=== PATIENT | female | born 1985 | race Caucasian/White ===

== ENCOUNTER 2021-09-26 18:40 | Emergency (ER) | payer SELFPAY ==
[~2021-09-26] VITALS: Ht 162 cm; Wt 127.0 kg
--- NOTE | 2021-09-26 18:55 | ED General ---
General Chief Complaint: General Problems/Pain Stated Complaint: WEAKNESS Nursing Triage Note: ARRIVED VIA EMS FROM WORK AT [employer] WHERE SHE BECAME DIZZY ET LIGHT HEADED AND POSSIBLY PASSED OUT. PT DOES NOT SPEAK CHADIAN. BROTHER IN LAW BROUGHT INTO TRANSLATE. HE STATES HER VISION IS BLURRY. Source of Information: Patient Exam Limitations: No Limitations History of Present Illness Date Seen by Provider: Sep 26, 2021 Time Seen by Provider: 18:53 Initial Comments To ER from work at [employer] where she had an episode of dizziness lightheadedness and blurred vision. This began about 3 PM today. EMS arrived on scene and found her blood sugar to be 66. She denies any known health problems or daily medications. She denies headache or pain anywhere now or at any time. At this time she feels back to normal though she does report that she feels nervous and her vision is still a little blurry. Her [id number]-[id number]-cbs is used for market relationship manager as a Welsh market relationship manager was not available with language line. Timing/Duration: 4-6 Hours Severity: Moderate Associated Systoms: No Headaches, No Loss of Appetite, No Malaise, No Nause a/Vomiting Allergies and Home Medications Allergies Coded Allergies: No Known Drug Allergies (Unverified , 09/26/21) Patient Home Medication List Home Medication List Reviewed: Yes Amoxicillin/Potassium Clav (Augmentin 875-125 Tablet) 1 Each Tablet, 1 EACH PO BID Prescribed by: RHINA ONEAL on 09/26/211958 Review of Systems Review of Systems Constitutional: see HPI EENTM: see HPI, blurred vision Respiratory: no symptoms reported Cardiovascular: no symptoms reported Genitourinary: no symptoms reported Musculoskeletal: no symptoms reported Skin: no symptoms reported Psychiatric/Neurological: No Symptoms Reported Past Dhfkcol-Apjaay-Vdktxd Hx Patient Social History Tobacco Use?: No Substance use?: No Immunizations Up To Date Second COVID19 Vaccination Pola: YES COVID19 Vaccine Bundle Tier: UNKNOWN Physical Exam Vital Signs Vital Signs - First Documented 09/26/21 18:42 Temp 36.3 Pulse 73 Resp 16 B/P (MAP) 127/92 (104) Pulse Ox 100 O2 Delivery Room Air Capillary Refill : Less Than 3 Seconds Height, Weight, BMI Height: '" Weight: lbs. oz. kg; 48.00 BMI Method: General Appearance: No Apparent Distress, WD/WN, Other (Hemodynamically stable without hypoxia hypotension or hypertension or tachycardia. She answers her brothers questions appropriately. She is noted to have pinpoint pupils. Denies taking any medications.) Eyes: Bilateral Eye Normal Inspection, Bilateral Eye PERRL, Bilateral Eye EOMI HEENT: TMs Normal, Normal ENT Inspection Neck: Full Range of Motion, Normal Inspection Respiratory: No Accessory Muscle Use, No Respiratory Distress Cardiovascular: Regular Rate, Rhythm, Normal Peripheral Pulses Gastrointestinal: Normal Bowel Sounds, Non Tender, Soft Extremity: Normal Capillary Refill, Normal Inspection Neurologic/Psychiatric: Alert, Oriented x3 Skin: Normal Color, Warm/Dry Progress/Results/Core Measures Suspected Sepsis SIRS Temperature: Pulse: 73 Respiratory Rate: 16 Laboratory Tests 09/26/21 18:50: White Blood Count 14.5H Blood Pressure 127 /92 Mean: 104 Laboratory Tests 09/26/21 18:50: Creatinine 0.73, Platelet Count 357, Total Bilirubin 0.6 Results/Orders Lab Results Laboratory Tests Test 09/26/21 18:47 09/26/21 18:50 09/26/21 20:05 Range/Units Glucometer 95 70-110 MG/DL White Blood Count 14.5 H 4.3-11.0 10^3/uL Red Blood Count 5.00 3.80-5.11 10^6/uL Hemoglobin 14.6 11.5-16.0 g/dL Hematocrit 42 35-52 % Mean Corpuscular Volume 84 80-99 fL Mean Corpuscular Hemoglobin 29 25-34 pg Mean Corpuscular Hemoglobin Concent 35 32-36 g/dL Red Cell Distribution Width 12.1 10.0-14.5 % Platelet Count 357 130-400 10^3/uL Mean Platelet Volume 10.6 9.0-12.2 fL Immature Granulocyte % (Auto) 0 % Neutrophils (%) (Auto) 56 42-75 % Lymphocytes (%) (Auto) 25 12-44 % Monocytes (%) (Auto) 5 0-12 % Eosinophils (%) (Auto) 14 H 0-10 % Basophils (%) (Auto) 1 0-10 % Neutrophils # (Auto) 8.1 H 1.8-7.8 10^3/uL Lymphocytes # (Auto) 3.6 1.0-4.0 10^3/uL Monocytes # (Auto) 0.7 0.0-1.0 10^3/uL Eosinophils # (Auto) 2.0 H 0.0-0.3 10^3/uL Basophils # (Auto) 0.1 0.0-0.1 10^3/uL Immature Granulocyte # (Auto) 0.0 0.0-0.1 10^3/uL Neutrophils % (Manual) 54 % Lymphocytes % (Manual) 23 % Monocytes % (Manual) 10 % Eosinophils % (Manual) 13 % Blood Morphology Comment NORMAL Sodium Level 136 135-145 MMOL/L Potassium Level 4.2 3.6-5.0 MMOL/L Chloride Level 102 98-107 MMOL/L Carbon Dioxide Level 21 21-32 MMOL/L Anion Gap 13 5-14 MMOL/L Blood Urea Nitrogen 10 7-18 MG/DL Creatinine 0.73 0.60-1.30 MG/DL Estimat Glomerular Filtration Rate 91 BUN/Creatinine Ratio 14 Glucose Level 90 70-105 MG/DL Calcium Level 9.4 8.5-10.1 MG/DL Corrected Calcium 9.2 8.5-10.1 MG/DL Total Bilirubin 0.6 0.1-1.0 MG/DL Aspartate Amino Transf (AST/SGOT) 19 5-34 U/L Alanine Aminotransferase (ALT/SGPT) 15 0-55 U/L Alkaline Phosphatase 86 40-136 U/L Total Protein 8.7 H 6.4-8.2 GM/DL Albumin 4.3 3.2-4.5 GM/DL Serum Test, Qualitative NEGATIVE NEGATIVE Serum Alcohol < 10 <10 MG/DL Urine Color YELLOW Urine Clarity CLEAR Urine pH 6.5 5-9 Urine Specific [place] 1.010 L 1.016-1.022 Urine Protein NEGATIVE NEGATIVE Urine Glucose (UA) NEGATIVE NEGATIVE Urine Ketones NEGATIVE NEGATIVE Urine Nitrite NEGATIVE NEGATIVE Urine Bilirubin NEGATIVE NEGATIVE Urine Urobilinogen 0.2 < = 1.0 MG/DL Urine Leukocyte Esterase 1+ H NEGATIVE Urine RBC (Auto) NEGATIVE NEGATIVE Urine RBC NONE /HPF Urine WBC 0-2 /HPF Urine Squamous Epithelial Cells 5-10 /HPF Urine Renal Epithelial Cells NONE /HPF Urine Crystals NONE /LPF Urine Bacteria NEGATIVE /HPF Urine Casts NONE /LPF Urine Mucus NEGATIVE /LPF Urine Culture Indicated NO Urine Opiates Screen NEGATIVE NEGATIVE Urine Oxycodone Screen NEGATIVE NEGATIVE Urine Methadone Screen NEGATIVE NEGATIVE Urine Propoxyphene Screen NEGATIVE NEGATIVE Urine Barbiturates Screen NEGATIVE NEGATIVE Ur Tricyclic Antidepressants Screen NEGATIVE NEGATIVE Urine Phencyclidine Screen NEGATIVE NEGATIVE Urine Amphetamines Screen NEGATIVE NEGATIVE Urine Methamphetamines Screen NEGATIVE NEGATIVE Urine Benzodiazepines Screen NEGATIVE NEGATIVE Urine Cocaine Screen NEGATIVE NEGATIVE Urine Cannabinoids Screen NEGATIVE NEGATIVE My Orders Orders - RHINA ONEAL APRN Cbc With Automated Diff (09/26/21 18:51) Comprehensive Metabolic Panel (09/26/21 18:51) Hcg,Qualitative Serum (09/26/21 18:51) Ed Iv/Invasive Line Start (09/26/21 18:51) Ct Head Wo (09/26/21 18:51) Drug Screen Stat (Urine) (09/26/21 18:51) Alcohol (09/26/21 18:51) Lorazepam Injection (Ativan Injection) (09/26/21 19:00) Manual Differential (09/26/21 18:50) Ua Culture If Indicated (09/26/21 19:03) Chest 1 View, Ap/Pa Only (09/26/21 19:03) Ceftriaxone 1 Gm Pre-Mix (Rocephin 1 Gm (09/26/21 20:00) Medications Given in ED Current Medications Medications Dose Ordered Sig/Alpesh Route Start Time Stop Time Status Last Admin Dose Admin Ceftriaxone Sodium/Dextrose 50 ml @ 100 mls/hr ONCE ONCE IV 09/26/21 20:00 09/26/21 20:29 DC 09/26/21 20:21 100 MLS/HR Lorazepam 0.5 mg ONCE PRN IVP 09/26/21 19:00 09/26/21 19:06 0.5 MG Vital Signs/I&O 09/26/21 18:42 Temp 36.3 Pulse 73 Resp 16 B/P (MAP) 127/92 (104) Pulse Ox 100 O2 Delivery Room Air Capillary Refill : Less Than 3 Seconds Blood Pressure Mean: 104 Point of Care Testing Finger Stick Blood Glucose: 95 Departure Impression Primary Impression: Pneumonia Additional Impression: Sinusitis Disposition: 01 HOME, SELF-CARE Condition: Stable Departure-Patient Inst. Decision time for Depature: 19:58 Patient Instructions: Sinusitis, Adult ED, Pneumonia in Adults Add. Discharge Instructions: 1. Take the antibiotic as directed. Return to ER for any concerns. Follow-up with your doctor next week. All discharge instructions reviewed with patient and/or family. Voiced understanding. Scripts Amoxicillin/Potassium Clav (Augmentin 875-125 Tablet) 1 Each Tablet 1 EACH PO BID, #14 TAB 0 Refills Prov: RHINA ONEAL APRN 09/26/21 Work/School Note: Work Release Form Date Seen in the Emergency Department: Sep 26, 2021 Return to Work: Sep 28, 2021 RHINA ONEAL APRN Sep 26, 2021 18:55
[2021-09-26 18:59] LABS: BASOPHILS # (AUTO) 0.1 10^3/uL (0.0-0.1); BASOPHILS % (AUTO) 1 % (0-10); EOSINOPHILS % (AUTO) 14 % (0-10); HEMATOCRIT 42 % (35-52); HEMOGLOBIN 14.6 g/dL (11.5-16.0); LYMPHOCYTES # (AUTO) 3.6 10^3/uL (1.0-4.0); LYMPHOCYTES % (AUTO) 25 % (12-44); MEAN CORPUSCULAR HEMOGLOBIN 29 pg (25-34); MEAN CORPUSCULAR HGB CONC 35 g/dL (32-36); MEAN CORPUSCULAR VOLUME 84 fL (80-99); MEAN PLATELET VOLUME 10.6 fL (9.0-12.2); MONOCYTES # (AUTO) 0.7 10^3/uL (0.0-1.0); MONOCYTES % (AUTO) 5 % (0-12); NEUTROPHILS # (AUTO) 8.1 10^3/uL (1.8-7.8); NEUTROPHILS % (AUTO) 56 % (42-75); PLATELET COUNT 357 10^3/uL (130-400); WHITE BLOOD COUNT 14.5 10^3/uL (4.3-11.0)
[2021-09-26] MEDS ORDERED: LORazepam INJ 2 MG/ML (ATIVAN) VIAL IVP PRN (19:00)
[2021-09-26 19:19] LABS: EOSINOPHILS % (MANUAL) 13 %; LYMPHOCYTES % (MANUAL) 23 %; MONOCYTES % (MANUAL) 10 %; NEUTROPHILS % (MANUAL) 54 %; RBC MORPH NORMAL
[2021-09-26 19:23] LABS: ALANINE AMINOTRANSFERASE 15 U/L (0-55); ALBUMIN 4.3 GM/DL (3.2-4.5); ALKALINE PHOSPHATASE 86 U/L (40-136); BILIRUBIN,TOTAL 0.6 MG/DL (0.1-1.0); BUN/CREATININE RATIO 14; CALCIUM 9.4 MG/DL (8.5-10.1); CARBON DIOXIDE 21 MMOL/L (21-32); CHLORIDE 102 MMOL/L (98-107); CREATININE SERUM 0.73 MG/DL (0.60-1.30); GFR ESTIMATED 91; GLUCOSE 90 MG/DL (70-105); POTASSIUM 4.2 MMOL/L (3.6-5.0); SODIUM 136 MMOL/L (135-145); TOTAL PROTEIN 8.7 GM/DL (6.4-8.2)
--- NOTE | 2021-09-26 19:50 | Diagnostic Imaging Report ---
HISTORY: Leukocytosis. COMPARISON: None. TECHNIQUE: Frontal view of the chest. FINDINGS: Lung volumes are low. There is airspace opacity in the right lung base. There is no pleural effusion or pneumothorax. The cardiac silhouette is normal in size. IMPRESSION: Right basilar airspace opacity, concerning for infection. Dictated by: Dictated on workstation # [id number]
--- NOTE | 2021-09-26 19:51 | Diagnostic Imaging Report ---
PROCEDURE: CT head without contrast. TECHNIQUE: Multiple contiguous axial images were obtained through the brain without the use of intravenous contrast. Auto Exposure Controls were utilized during the CT exam to meet ALARA standards for radiation dose reduction. INDICATION: Syncope, dizziness. COMPARISON: None. FINDINGS: The ventricles and cortical sulci are age-appropriate. There is no midline shift or mass effect. No acute intracranial hemorrhage is seen. There is no CT evidence of acute territorial ischemia. The calvarium is intact. There is mild mucosal thickening in the left frontal, left maxillary and bilateral ethmoid sinuses. IMPRESSION: 1. No acute intracranial abnormality. 2. Moderate mucosal thickening in the paranasal sinuses, particularly on the left. Dictated by: Dictated on workstation # [id number]
[2021-09-26] MEDS ORDERED: AMOX-358 PO (19:59)
[2021-09-26] MEDS ORDERED: cefTRIAXone 1 GM PRE-MIX 50 ML IV ONE (20:00)
[2021-09-26 20:15] LABS: BILIRUBIN,URINE NEGATIVE (NEGATIVE); CLARITY,URINE CLEAR; COLOR,URINE YELLOW; GLUCOSE, URINE (UA) NEGATIVE (NEGATIVE); KETONES,URINE NEGATIVE (NEGATIVE); LEUKOCYTE ESTERASE ,URINE 1+ (NEGATIVE); NITRITE,URINE NEGATIVE (NEGATIVE); PH,URINE 6.5 (5-9); PROTEIN,URINE NEGATIVE (NEGATIVE)
[2021-09-26 20:27] LABS: AMPHETAMINE SCREEN, URINE NEGATIVE (NEGATIVE); BARBITURATE SCREEN URINE NEGATIVE (NEGATIVE); BENZODIAZEPINES SCREEN URINE NEGATIVE (NEGATIVE); CANNABINOID SCREEN, URINE NEGATIVE (NEGATIVE); COCAINE SCREEN URINE NEGATIVE (NEGATIVE); METHADONE STAT NEGATIVE (NEGATIVE); METHAMPHETAMINE SCREEN URINE S NEGATIVE (NEGATIVE); OPIATE SCREEN URINE NEGATIVE (NEGATIVE); OXYCODONE STAT NEGATIVE (NEGATIVE); PROPOXYPHENE STAT NEGATIVE (NEGATIVE); TRICYCLIC ANTIDEPRESSANTS SCRE NEGATIVE (NEGATIVE)
[2021-09-26 20:29] LABS: BACTERIA,URINE NEGATIVE /HPF; WBC,URINE 0-2 /HPF
[2021-09-26 21:05] VITALS: BP 129/83
== END 2021-09-26 21:10 | disposition home or self-care (01) ==
LOC: ER 18:42
DX: J18.9 Pneumonia, unspecified organism (principal); J32.9 Chronic sinusitis, unspecified
CPT/HCPCS: 70450; 71045; 80053; 80306; 81000; 82947; 84703; 85007; 85027; 99284; G0480; 36415; 80320

== ENCOUNTER 2022-06-26 15:53 | Emergency (ER) | payer SELFPAY ==
[~2022-06-26] VITALS: Ht 154 cm; Wt 108.0 kg
[~2022-06-26 15:53] MED LIST: AMOX-358 PO
--- NOTE | 2022-06-26 16:24 | ED Chest Pain ---
General Chief Complaint: Chest Pain Stated Complaint: CHEST PAIN Nursing Triage Note: ARRIVED VIA AMB TO ROOM 06. COMPLAINS OF CHEST PAIN STARTING YESTERDAY. Source: patient, family (brother acts as quality improvement manager) Exam Limitations: language barrier History of Present Illness Date Seen by Provider: Jun 26, 2022 Time Seen by Provider: 16:10 Initial Comments Patient is a 35-year-old Brazilian female who presents to the emergency department with family chief complaint of chest pain since she got off work at [employer] yesterday. Onset of pain around 10:00. Apparently the pain is waxing and waning. She currently rates it at a "7". She states that she feels short of breath on the discomfort as a "tightness". No cough. No upper respiratory complaints. She has been a little nauseous throughout the day. Nothing makes the pain any better or worse. She denies fevers or chills. Brother is acting as the quality improvement manager and states that she had similar complaints a year ago when she was told she had pneumonia. She is not and has not ever been a smoker. She does not use any recreational drugs. No recent travel. She is not on any daily medications. She has an implanted control that her brother states is "". No GI or symptoms. No lower extremity swelling or pain. She took Tylenol at 11 AM this morning without any relief of symptoms. No family history of coronary artery disease in any family member at any age. All other review of systems reviewed and negative except as stated. Timing/Duration: 24 hours Severity/Quality: moderate ("7") Location: other (left chest) Radiation: no radiation Activities at Onset: other (after work) Prior CP/Workup: no prior cardiac workup, non-cardiac Modifying Factors: worse with breathing ASA po HOME AGENT: No NTG SL HOME AGENT: No Associated Symptoms: nausea/vomiting, shortness of breath Allergies and Home Medications Allergies Coded Allergies: No Known Drug Allergies (Unverified , 09/26/21) Patient Home Medication List Home Medication List Reviewed: Yes Albuterol Sulfate (Proair Hfa) 1 Puff Puff, 2 PUFF IH Q6H PRN for shortness of breath/wheezing Prescribed by: NARINDER OSORIO on 06/26/22 7006 Amoxicillin/Potassium Clav (Augmentin 875-125 Tablet) 1 Each Tablet, 1 EACH PO BID Prescribed by: RHINA ONEAL on 09/26/211958 Cefdinir (Cefdinir) 300 Mg Capsule, 300 MG PO BID Prescribed by: NARINDER OSORIO on 06/26/22 1717 Review of Systems Review of Systems Constitutional: see HPI EENTM: No Symptoms Reported Respiratory: Shortness of Air Cardiovascular: Chest Pain Gastrointestinal: Nausea Genitourinary: No Symptoms Reported Musculoskeletal: no symptoms reported Psychiatric/Neurological: No Symptoms Reported All Other Systems Reviewed Negative Unless Noted: Yes Past Mrvfzrz-Fgykjh-Grpbwq Hx Patient Social History Tobacco Use?: No Substance use?: No Alcohol Use?: No Immunizations Up To Date Second COVID19 Vaccination Pola: YES Physical Exam Vital Signs Vital Signs - First Documented 06/26/22 15:55 Temp 36.7 Pulse 78 Resp 16 B/P (MAP) 135/81 (99) Pulse Ox 97 O2 Delivery Room Air Capillary Refill : Less Than 3 Seconds Height, Weight, BMI Height: '" Weight: lbs. oz. kg; 45.00 BMI Method: General Appearance: No Apparent Distress, WD/WN, Other (appears a little tear ful) HEENT: PERRL/EOMI Neck: Normal Inspection Respiratory: No Accessory Muscle Use, No Respiratory Distress, Crackles (at bases posteriorly bilaterally) Cardiovascular: Regular Rate, Rhythm, Normal Peripheral Pulses Gastrointestinal: Normal Bowel Sounds, Soft, Tenderness (LUQ) Extremity: Normal Inspection, Normal Range of Motion, No Pedal Edema Neurologic/Psychiatric: Alert, Oriented x3, No Motor/Sensory Deficits Skin: Normal Color, Warm/Dry Progress/Results/Core Measures Results/Orders Lab Results Laboratory Tests Test 06/26/22 16:03 Range/Units White Blood Count 17.0 H 4.3-11.0 10^3/uL Red Blood Count 4.94 3.80-5.11 10^6/uL Hemoglobin 14.7 11.5-16.0 g/dL Hematocrit 41 35-52 % Mean Corpuscular Volume 83 80-99 fL Mean Corpuscular Hemoglobin 30 25-34 pg Mean Corpuscular Hemoglobin Concent 36 32-36 g/dL Red Cell Distribution Width 12.5 10.0-14.5 % Platelet Count 352 130-400 10^3/uL Mean Platelet Volume 10.5 9.0-12.2 fL Immature Granulocyte % (Auto) 0 % Neutrophils (%) (Auto) 84 H 42-75 % Lymphocytes (%) (Auto) 9 L 12-44 % Monocytes (%) (Auto) 3 0-12 % Eosinophils (%) (Auto) 4 0-10 % Basophils (%) (Auto) 0 0-10 % Neutrophils # (Auto) 14.2 H 1.8-7.8 10^3/uL Lymphocytes # (Auto) 1.6 1.0-4.0 10^3/uL Monocytes # (Auto) 0.5 0.0-1.0 10^3/uL Eosinophils # (Auto) 0.7 H 0.0-0.3 10^3/uL Basophils # (Auto) 0.0 0.0-0.1 10^3/uL Immature Granulocyte # (Auto) 0.0 0.0-0.1 10^3/uL Neutrophils % (Manual) 87 % Lymphocytes % (Manual) 10 % Monocytes % (Manual) 1 % Eosinophils % (Manual) 2 % Blood Morphology Comment NORMAL Prothrombin Time 13.3 12.2-14.7 SEC INR Comment 1.0 0.8-1.4 Activated Partial Thromboplast Time 33 24-35 SEC Sodium Level 137 135-145 MMOL/L Potassium Level 3.7 3.6-5.0 MMOL/L Chloride Level 106 98-107 MMOL/L Carbon Dioxide Level 22 21-32 MMOL/L Anion Gap 9 5-14 MMOL/L Blood Urea Nitrogen 9 7-18 MG/DL Creatinine 0.66 0.60-1.30 MG/DL Estimat Glomerular Filtration Rate 118 BUN/Creatinine Ratio 14 Glucose Level 107 H 70-105 MG/DL Calcium Level 9.0 8.5-10.1 MG/DL Corrected Calcium 8.8 8.5-10.1 MG/DL Magnesium Level 2.0 1.6-2.4 MG/DL Total Bilirubin 1.2 H 0.1-1.0 MG/DL Aspartate Amino Transf (AST/SGOT) 15 5-34 U/L Alanine Aminotransferase (ALT/SGPT) 17 0-55 U/L Alkaline Phosphatase 87 40-136 U/L Myoglobin 43.6 10.0-92.0 NG/ML Troponin I < 0.028 <0.028 NG/ML Total Protein 8.2 6.4-8.2 GM/DL Albumin 4.3 3.2-4.5 GM/DL Serum Test, Qualitative NEGATIVE NEGATIVE My Orders Orders - NARINDER OSORIO MD Ekg Tracing (06/26/22 16:04) Cbc With Automated Diff (06/26/22 16:19) Magnesium (06/26/22 16:19) Chest 1 View, Ap/Pa Only (06/26/22 16:19) Ekg Tracing (06/26/22 16:19) Comprehensive Metabolic Panel (06/26/22 16:19) Myoglobin Serum (06/26/22 16:19) Protime With Inr (06/26/22 16:19) Partial Thromboplastin Time (06/26/22 16:19) O2 (06/26/22 16:19) Monitor-Rhythm Ecg Trace Only (06/26/22 16:19) Lipid Panel (06/27/22 06:00) Ed Iv/Invasive Line Start (06/26/22 16:19) Troponin I [place] (06/26/22 16:19) Ketorolac Injection (Toradol Injection) (06/26/22 16:30) Hcg,Qualitative Serum (06/26/22 16:24) Manual Differential (06/26/22 16:03) Ceftriaxone 1 Gm Pre-Mix (Rocephin 1 Gm (06/26/22 17:15) Medications Given in ED Current Medications Medications Dose Ordered Sig/Alpesh Route Start Time Stop Time Status Last Admin Dose Admin Ketorolac Tromethamine 15 mg ONCE ONCE IVP 06/26/22 16:30 06/26/22 16:31 DC 06/26/22 16:37 15 MG Vital Signs/I&O 06/26/22 15:55 Temp 36.7 Pulse 78 Resp 16 B/P (MAP) 135/81 (99) Pulse Ox 97 O2 Delivery Room Air Blood Pressure Mean: 99 Initial ECG Impression Date: Jun 26, 2022 Initial ECG Impression Time: 16:10 Initial ECG Rate: 75 Initial ECG Rhythm: Normal Sinus Initial ECG Intervals: Normal Initial ECG Impression: Nonspecific Changes Diagnostic Imaging Diagonstic Imaging: Xray Plain Films/CT/US/NM/MRI: chest Comments [facility], [place] NAME: ADRIANO MORALES [facility] REC#: [id number] PT STATUS: REG ER : 08/11/1986 PHYSICIAN: NARINDER OSORIO MD ADMIT DATE: 06/26/22/ER Draft Date of Exam:06/26/22 CHEST 1 VIEW, AP/PA ONLY INDICATION: Chest pain. TIME OF EXAM: 4:26 PM. COMPARISON: Correlation is made with prior chest of 09/26/2021. Right basilar density obscuring the right heart border is noted. Left lung is clear. There is no effusion or pneumothorax. IMPRESSION: Findings suggestive of right basilar pneumonia or atelectasis. Dictated on workstation # [id number] Dict: 06/26/22 1641 Trans: 06/26/22 1644 [facility] [id number] Interpreted by: ERIC ESCOBAR MD Electronically signed by: Departure Impression Primary Impression: Pneumonia Qualified Codes: J18.9 - Pneumonia, unspecified organism Disposition: HOME, SELF-CARE Condition: Stable Departure-Patient Inst. Decision time for Depature: 17:13 Referrals: [facility]/CURTIS LOYOLA,LOCAL PHYSICIAN (PCP) Primary Care Physician Patient Instructions: Community-Acquired Pneumonia in Adults Add. Discharge Instructions: Drink plenty of fluids to stay well hydrated. Take the antibiotics as directed for the entire 7 days. Twice a day. Use the Inhaler (Albuterol) I have prescribed, to help you take deep breaths - 2 puffs every 4-6 hours for shortness of breath. Over the counter Ibuprofen (advil or motrin) 3 pills every 6hours as needed for chest discomfort. Always take this medication with food. If you run fever, have worse pain, become more short of breath, please come back to the ER for a re-evaluation. Please follow up with [facility]. Scripts Albuterol Sulfate (PROAIR HFA) 1 Puff Puff 2 PUFF IH Q6H PRN for shortness of breath/wheezing, #1 EA 1 PUFF = 90 MCG Prov: NARINDER OSORIO MD 06/26/22 Cefdinir (Cefdinir) 300 Mg Capsule 300 MG PO BID for 7 Days, #14 CAP 0 Refills Prov: NARINDER OSORIO MD 06/26/22 Work/School Note: Work Release Form Date Seen in the Emergency Department: Jun 26, 2022 Return to Work: Jun 28, 2022 Copy Copies To 1: [facility]/NARINDER SIMMS MD Jun 26, 2022 16:24
[2022-06-26 16:29] LABS: BASOPHILS % (AUTO) 0 % (0-10); EOSINOPHILS # (AUTO) 0.7 10^3/uL (0.0-0.3); EOSINOPHILS % (AUTO) 4 % (0-10); HEMATOCRIT 41 % (35-52); HEMOGLOBIN 14.7 g/dL (11.5-16.0); LYMPHOCYTES # (AUTO) 1.6 10^3/uL (1.0-4.0); LYMPHOCYTES % (AUTO) 9 % (12-44); MEAN CORPUSCULAR HEMOGLOBIN 30 pg (25-34); MEAN CORPUSCULAR HGB CONC 36 g/dL (32-36); MEAN CORPUSCULAR VOLUME 83 fL (80-99); MEAN PLATELET VOLUME 10.5 fL (9.0-12.2); MONOCYTES # (AUTO) 0.5 10^3/uL (0.0-1.0); MONOCYTES % (AUTO) 3 % (0-12); NEUTROPHILS # (AUTO) 14.2 10^3/uL (1.8-7.8); NEUTROPHILS % (AUTO) 84 % (42-75); PLATELET COUNT 352 10^3/uL (130-400)
[2022-06-26] MEDS ORDERED: KETOROLAC 30 MG/ML VIAL IVP ONE (16:30)
[2022-06-26 16:32] LABS: ALBUMIN 4.3 GM/DL (3.2-4.5)
[2022-06-26 16:33] LABS: POTASSIUM 3.7 MMOL/L (3.6-5.0)
[2022-06-26 16:35] LABS: TOTAL PROTEIN 8.2 GM/DL (6.4-8.2)
[2022-06-26 16:37] LABS: BILIRUBIN,TOTAL 1.2 MG/DL (0.1-1.0)
[2022-06-26 16:38] LABS: CREATININE SERUM 0.66 MG/DL (0.60-1.30)
[2022-06-26 16:42] LABS: PROTHROMBIN TIME PATIENT 13.3 SEC (12.2-14.7)
--- NOTE | 2022-06-26 16:44 | Diagnostic Imaging Report ---
INDICATION: Chest pain. TIME OF EXAM: 4:26 PM. COMPARISON: Correlation is made with prior chest of 09/26/2021. Right basilar density obscuring the right heart border is noted. Left lung is clear. There is no effusion or pneumothorax. IMPRESSION: Findings suggestive of right basilar pneumonia or atelectasis. Dictated by: Dictated on workstation # [id number]
[2022-06-26 16:59] LABS: EOSINOPHILS % (MANUAL) 2 %; LYMPHOCYTES % (MANUAL) 10 %; MONOCYTES % (MANUAL) 1 %; NEUTROPHILS % (MANUAL) 87 %; RBC MORPH NORMAL
[2022-06-26] MEDS ORDERED: cefTRIAXone 1 GM PRE-MIX 50 ML IV ONE (17:15)
[2022-06-26] MEDS ORDERED: CEFD300C3 PO (17:17)
[2022-06-26] MEDS ORDERED: RT-ALBUINH IH (17:17)
[2022-06-26 17:57] VITALS: BP 138/97
== END 2022-06-26 17:57 | disposition home or self-care (01) ==
LOC: EDUNIT# 15:53 → ER 15:56
DX: J18.9 Pneumonia, unspecified organism (principal)
CPT/HCPCS: 36415; 71045; 80053; 83735; 83874; 84484; 84703; 85007; 85027; 85610; 85730; 93005; 93041

== ENCOUNTER 2022-09-22 11:50 | Emergency (ER) | payer SELFPAY ==
[~2022-09-22] VITALS: Ht 154 cm; Wt 109.3 kg
[~2022-09-22 11:50] MED LIST changes: +ALBU8.5H6 IH; +CEFD300C3 PO
--- NOTE | 2022-09-22 12:29 | ED Chest Pain ---
General Chief Complaint: Chest Pain Stated Complaint: CHEST PAINS Source: patient Exam Limitations: no limitations (RONNY MARISCAL APRN) History of Present Illness Date Seen by Provider: Sep 22, 2022 Time Seen by Provider: 11:55 Initial Comments Patient is a 36-year-old female who presents to the emergency department with s hortness of breath and chest pain. Patient states that shortness of breath is chronic and has been present for 4 to 5 years ever since she had a Nexplanon implant placed. She states that shortness of breath is not a particularly worse today than normal. She states the chest pain began yesterday and is not something she normally has. She states the pain is mostly substernal and left- sided. No radiation of the pain. States the pain does not worsen with activity, position change, or deep breathing. No specific history of heart or lung problems in the past. States she has been seen in the emergency department 3 times for similar symptoms. She does not have a PCP. She has not taken anything for the symptoms. She is a current smoker. Denies any diaphoresis. No recent chest trauma. A Polar OLED video ceramic plater was utilized for all communication. (RONNY MARISCAL APRN) Allergies and Home Medications Allergies Coded Allergies: No Known Drug Allergies (Unverified , 09/26/21) Patient Home Medication List Home Medication List Reviewed: Yes (RONNY MARISCAL APRN) Albuterol Sulfate (Ventolin Hfa) 1 Puff Puff, 2 PUFF IH Q6H PRN for shortness of breath/wheezing Prescribed by: NARINDER OSORIO on 06/26/221716 Amoxicillin (Amoxicillin) 500 Mg Tablet, 1,000 MG PO TID Prescribed by: Ronny Mariscal on 09/22/22 141 Amoxicillin/Potassium Clav (Augmentin 875-125 Tablet) 1 Each Tablet, 1 EACH PO BID Prescribed by: RHINA ONEAL on 09/26/211958 Azithromycin (Azithromycin) 250 Mg Tablet, 250 MG PO UD Prescribed by: Ronny Mariscal on 09/22/22 141 Cefdinir (Cefdinir) 300 Mg Capsule, 300 MG PO BID Prescribed by: NARINDER OSORIO on 06/26/221716 Review of Systems Review of Systems Constitutional: see HPI Respiratory: See HPI, Shortness of Air Cardiovascular: See HPI, Chest Pain Gastrointestinal: No Symptoms Reported Genitourinary: No Symptoms Reported Musculoskeletal: no symptoms reported Skin: no symptoms reported Psychiatric/Neurological: No Symptoms Reported (RONNY MARISCAL APRN) Past Knsphhf-Kfeqhz-Yzpwli Hx Immunizations Up To Date Second COVID19 Vaccination Pola: YES (RONNY MARISCAL APRN) Physical Exam Vital Signs Vital Signs - First Documented 09/22/22 11:54 Temp 36.0 Pulse 80 Resp 15 B/P (MAP) 128/99 (109) Pulse Ox 97 O2 Delivery Room Air (CAREN VARGAS MD) Vital Signs Capillary Refill : (RONNY MARISCAL APRN) Height, Weight, BMI Height: '" Weight: lbs. oz. kg; 45.00 BMI Method: General Appearance: No Apparent Distress, WD/WN HEENT: PERRL/EOMI, TMs Normal, Normal ENT Inspection, Pharynx Normal Neck: Full Range of Motion, Normal Inspection, Non Tender, Supple Respiratory: Chest Non Tender, Lungs Clear, Normal Breath Sounds, No Accessory Muscle Use Cardiovascular: Regular Rate, Rhythm Gastrointestinal: Normal Bowel Sounds Neurologic/Psychiatric: Alert, Oriented x3, No Motor/Sensory Deficits, Normal Mood/Affect Skin: Normal Color, Warm/Dry (RONNY MARISCAL APRN) Progress/Results/Core Measures Results/Orders Lab Results Laboratory Tests Test 09/22/22 12:08 Range/Units White Blood Count 15.6 H 4.3-11.0 10^3/uL Red Blood Count 4.86 3.80-5.11 10^6/uL Hemoglobin 14.3 11.5-16.0 g/dL Hematocrit 41 35-52 % Mean Corpuscular Volume 84 80-99 fL Mean Corpuscular Hemoglobin 29 25-34 pg Mean Corpuscular Hemoglobin Concent 35 32-36 g/dL Red Cell Distribution Width 12.1 10.0-14.5 % Platelet Count 301 130-400 10^3/uL Mean Platelet Volume 10.6 9.0-12.2 fL Immature Granulocyte % (Auto) 0 % Neutrophils (%) (Auto) 69 42-75 % Lymphocytes (%) (Auto) 17 12-44 % Monocytes (%) (Auto) 5 0-12 % Eosinophils (%) (Auto) 9 0-10 % Basophils (%) (Auto) 0 0-10 % Neutrophils # (Auto) 10.7 H 1.8-7.8 10^3/uL Lymphocytes # (Auto) 2.6 1.0-4.0 10^3/uL Monocytes # (Auto) 0.8 0.0-1.0 10^3/uL Eosinophils # (Auto) 1.3 H 0.0-0.3 10^3/uL Basophils # (Auto) 0.1 0.0-0.1 10^3/uL Immature Granulocyte # (Auto) 0.1 0.0-0.1 10^3/uL Neutrophils % (Manual) 67 % Lymphocytes % (Manual) 22 % Monocytes % (Manual) 5 % Eosinophils % (Manual) 5 % Basophils % (Manual) 1 % Blood Morphology Comment NORMAL Prothrombin Time 13.5 12.2-14.7 SEC INR Comment 1.0 0.8-1.4 Activated Partial Thromboplast Time 34 24-35 SEC D-Dimer 0.28 0.00-0.49 UG/ML Sodium Level 136 135-145 MMOL/L Potassium Level 4.5 3.6-5.0 MMOL/L Chloride Level 102 98-107 MMOL/L Carbon Dioxide Level 24 21-32 MMOL/L Anion Gap 10 5-14 MMOL/L Blood Urea Nitrogen 11 7-18 MG/DL Creatinine 0.71 0.60-1.30 MG/DL Estimat Glomerular Filtration Rate 114 BUN/Creatinine Ratio 15 Glucose Level 96 70-105 MG/DL Calcium Level 8.8 8.5-10.1 MG/DL Corrected Calcium 8.7 8.5-10.1 MG/DL Magnesium Level 1.8 1.6-2.4 MG/DL Total Bilirubin 0.5 0.1-1.0 MG/DL Aspartate Amino Transf (AST/SGOT) 23 5-34 U/L Alanine Aminotransferase (ALT/SGPT) 23 0-55 U/L Alkaline Phosphatase 90 40-136 U/L Myoglobin 32.6 10.0-92.0 NG/ML Troponin I < 0.028 <0.028 NG/ML Total Protein 8.2 6.4-8.2 GM/DL Albumin 4.1 3.2-4.5 GM/DL (CAREN VARGAS MD) My Orders Orders - CAREN VARGAS MD Ekg Tracing (09/22/22 11:53) (CAREN VARGAS MD) Vital Signs/I&O 09/22/22 09/22/22 11:54 14:40 Temp 36.0 Pulse 80 82 Resp 15 18 B/P (MAP) 128/99 (109) 111/65 Pulse Ox 97 97 O2 Delivery Room Air Room Air (CAREN VARGAS MD) Progress Progress Note : Progress Note Patient is nontoxic and well-hydrated on exam. No adventitious lung sounds or increased work of breathing noted. Pulses are strong and regular. Vital signs are overall reassuring without hypoxia or marked tachypnea/tachycardia. Initial EKG reveals no acute ischemic change or arrhythmia. Laboratory evaluation is reassuring with a normal troponin. No need to repeat as the pain has been present since yesterday. Other lab work is noncontributory other than mild leukocytosis. Chest x-ray notable for possible right basilar infiltrate. Given patient's leukocytosis will treat with antibiotics. Discussed importance of establishing a PCP. Patient states she wants the Nexplanon removed and I stated that this would have to be done by an BEHAVIORAL HEALTH THERAPIST or another provider with appropriate training as this is not something we do in the ER. Return precautions for urgent symptomology discussed. Patient verbalized understanding. (RONNY MARISCAL APRN) EKG : EKG Time: 12:01 Rate: 79 Rhythm: Normal Sinus Intervals: Normal ECG Impression: Normal (RONNY MARISCAL APRN) Departure Impression Primary Impression: Pneumonia Qualified Codes: J18.9 - Pneumonia, unspecified organism Additional Impressions: Chronic shortness of breath Chest pain Qualified Codes: R07.9 - Chest pain, unspecified Disposition: 01 HOME, SELF-CARE Condition: Stable Departure-Patient Inst. Decision time for Depature: 14:10 (RONNY MARISCAL APRN) Referrals: NO,LOCAL PHYSICIAN (PCP/Family) Primary Care Physician Patient Instructions: Pneumonia, Adult ED Scripts Azithromycin (Azithromycin) 250 Mg Tablet 250 MG PO UD, #6 TAB TAKE 2 TABLETS ON DAY ONE THEN TAKE 1 TABLET DAILY FOR FOUR MORE DAYS Prov: RONNY MARISCAL APRN 09/22/22 Amoxicillin (Amoxicillin) 500 Mg Tablet 1000 MG PO TID for 7 Days, #42 TAB 0 Refills Prov: RONNY MARISCAL APRN 09/22/22 ATTENDING PHYSICIAN NOTE: I was physically present as attending physician in the emergency department during the care of this patient, but I was not directly involved in the decision making or delivery of care for this patient. (CAREN VARGAS MD) RONNY MARISCAL APRN Sep 22, 2022 12:29 CAREN VARGAS MD Sep 23, 2022 21:24
[2022-09-22] MEDS ORDERED: ASPIRIN 81 MG CHEW (CHILDREN'S ASA) PO ONE (12:30)
[2022-09-22 12:40] LABS: ALBUMIN 4.1 GM/DL (3.2-4.5); BASOPHILS # (AUTO) 0.1 10^3/uL (0.0-0.1); BASOPHILS % (AUTO) 0 % (0-10); EOSINOPHILS # (AUTO) 1.3 10^3/uL (0.0-0.3); EOSINOPHILS % (AUTO) 9 % (0-10); HEMATOCRIT 41 % (35-52); HEMOGLOBIN 14.3 g/dL (11.5-16.0); LYMPHOCYTES # (AUTO) 2.6 10^3/uL (1.0-4.0); LYMPHOCYTES % (AUTO) 17 % (12-44); MEAN CORPUSCULAR HEMOGLOBIN 29 pg (25-34); MEAN CORPUSCULAR HGB CONC 35 g/dL (32-36); MEAN CORPUSCULAR VOLUME 84 fL (80-99); MEAN PLATELET VOLUME 10.6 fL (9.0-12.2); MONOCYTES # (AUTO) 0.8 10^3/uL (0.0-1.0); MONOCYTES % (AUTO) 5 % (0-12); NEUTROPHILS # (AUTO) 10.7 10^3/uL (1.8-7.8); NEUTROPHILS % (AUTO) 69 % (42-75); PLATELET COUNT 301 10^3/uL (130-400); POTASSIUM 4.5 MMOL/L (3.6-5.0); WHITE BLOOD COUNT 15.6 10^3/uL (4.3-11.0)
[2022-09-22 12:41] LABS: CALCIUM 8.8 MG/DL (8.5-10.1)
[2022-09-22 12:43] LABS: PROTHROMBIN TIME PATIENT 13.5 SEC (12.2-14.7); TOTAL PROTEIN 8.2 GM/DL (6.4-8.2)
[2022-09-22 12:44] LABS: BILIRUBIN,TOTAL 0.5 MG/DL (0.1-1.0)
[2022-09-22 12:46] LABS: CREATININE SERUM 0.71 MG/DL (0.60-1.30)
[2022-09-22 12:49] LABS: MAGNESIUM 1.8 MG/DL (1.6-2.4)
[2022-09-22 13:04] LABS: BASOPHILS % (MANUAL) 1 %; EOSINOPHILS % (MANUAL) 5 %; LYMPHOCYTES % (MANUAL) 22 %; MONOCYTES % (MANUAL) 5 %; NEUTROPHILS % (MANUAL) 67 %; RBC MORPH NORMAL
--- NOTE | 2022-09-22 13:41 | Diagnostic Imaging Report ---
INDICATION: Chest pain. Frontal chest obtained at 1:05 p.m. and compared to 06/26/2022. FINDINGS: Heart is borderline in size. There is mild right basilar atelectatic change versus infiltrate. Left lung is clear. There is no pneumothorax or pleural fluid. IMPRESSION: Mild right basilar infiltrates versus atelectasis. This is new compared to the prior study. Otherwise, negative study. Dictated by: Dictated on workstation # [id number]
[2022-09-22] MEDS ORDERED: AMOX500T2 PO (14:14)
[2022-09-22] MEDS ORDERED: AZIT250T12 PO (14:14)
[2022-09-22 14:40] VITALS: BP 111/65
== END 2022-09-22 14:40 | disposition home or self-care (01) ==
LOC: EDUNIT# 11:50 → ER 11:52
DX: J18.9 Pneumonia, unspecified organism (principal)
CPT/HCPCS: 36415; 71045; 80053; 83735; 83874; 84484; 85007; 85027; 85379; 85610; 85730; 93005; 93041

== ENCOUNTER 2023-07-26 13:12 | Emergency (ER) | payer BC ==
[~2023-07-26] VITALS: Ht 150 cm; Wt 117.6 kg
[~2023-07-26 13:12] MED LIST changes: +AMOX500T2 PO; +AZIT250T12 PO
--- NOTE | 2023-07-26 14:01 | ED Cough/URI ---
General Chief Complaint: Cough/Cold/Flu Symptoms Stated Complaint: COUGH | FLU SYMPTOMS Nursing Triage Note: PT AMBULATORY TO ER WITH FAMILY. REPORTS COUGH AND CONGESTION ONSET TUESDAY, WORSE LAST NIGHT. Source: patient Exam Limitations: no limitations (SALLY STANTON) History of Present Illness Date Seen by Provider: Jul 26, 2023 Time Seen by Provider: 13:59 Initial Comments Patient is a 36-year-old female with a history of asthma who presents ED with cough, congestion since Tuesday. Symptoms became worse last night. She reports pain to the right sided chest with the cough. Denies of any shortness of breath. Reports some wheezing. She states she has a history of similar type symptoms in the past was diagnosed with pneumonia. She denies of any vomiting or diarrhea but reports nausea. Denies sore throat, ear pain. Denies of abdominal pain dysuria or hematuria. No known cardiac history. Denies of any recent travels or surgeries, fever. She reports body aches chills weakness. She denies of any current chest pain. (SALLY STANTON) Allergies and Home Medications Allergies Coded Allergies: No Known Drug Allergies (Unverified , 09/26/21) Patient Home Medication List Home Medication List Reviewed: Yes (SALLY STANTON) Albuterol Sulfate (Ventolin Hfa) 1 Puff Puff, 2 PUFF IH Q6H PRN for shortness of breath/wheezing Prescribed by: NARINDER OSORIO on 06/26/221716 Albuterol Sulfate (Ventolin Hfa) 1 Puff Puff, 2 PUFF INH Q4H Prescribed by: NIGHAT PATEL on 07/26/23 1525 Amoxicillin (Amoxicillin) 500 Mg Tablet, 1,000 MG PO TID Prescribed by: Ronny Mariscal on 09/22/22 141 Amoxicillin/Potassium Clav (Augmentin 875-125 Tablet) 1 Each Tablet, 1 EACH PO BID Prescribed by: RHINA ONEAL on 09/26/211958 Azithromycin (Azithromycin) 250 Mg Tablet, 250 MG PO UD Prescribed by: Ronny Mariscal on 09/22/22 141 Cefdinir (Cefdinir) 300 Mg Capsule, 300 MG PO BID Prescribed by: NARINDER OSORIO on 06/26/221716 Doxycycline Monohydrate (Doxycycline Monohydrate) 100 Mg Tablet, 100 MG PO BID Prescribed by: NIGHAT PATEL on 07/26/231524 Prednisone (Prednisone) 50 Mg Tab, 50 MG PO DAILY Prescribed by: NIGHAT PATEL on 07/26/231524 Review of Systems Review of Systems Constitutional: chills, malaise, weakness EENTM: No ear pain Respiratory: cough; No short of breath Cardiovascular: chest pain Gastrointestinal: No abdominal pain, No diarrhea; nausea; No vomiting Genitourinary: No decreased output, No discharge, No dysuria, No frequency Musculoskeletal: No back pain, No joint pain Skin: No change in color, No change in hair/nails (SALLY STANTON) All Other Systems Reviewed Negative Unless Noted: Yes (SALLY STANTON) Past Pusmswb-Pijhqt-Ekolia Hx Patient Social History Pt feels they are or have been: No (SALLY STANTON) Immunizations Up To Date First/Initial COVID19 Vaccinat: UNK Second COVID19 Vaccination Pola: YES Third COVID19 Vaccination Date: YES COVID19 Vaccine Bander Operator: UNShavonne (SALLY STANTON) Physical Exam Vital Signs - First Documented 07/26/23 07/26/23 13:24 15:28 Temp 36.6 Pulse 84 Resp 16 B/P (MAP) 134/86 (102) Pulse Ox 95 O2 Delivery Room Air (CAREN VARGAS MD) Capillary Refill : (SALLY STANTON) Height: '" Weight: lbs. oz. kg; 52.00 BMI Method: General Appearance: WD/WN, no apparent distress Eyes: Bilateral Eye Normal Inspection, Bilateral Eye PERRL, Bilateral Eye EOMI HEENT: PERRL/EOMI, normal ENT inspection, TMs normal, pharynx normal Neck: non-tender, full range of motion, supple Respiratory: chest non-tender, lungs clear, normal breath sounds Cardiovascular: regular rate, rhythm, no edema, no gallop, no JVD Gastrointestinal: normal bowel sounds, non tender, soft, no organomegaly Extremities: normal range of motion, non-tender, normal inspection, no pedal edema Neurologic/Psychiatric: senior peoplesoft developer II-XII nml as tested, no motor/sensory deficits, alert, normal mood/affect, oriented x 3 Skin: normal color, warm/dry (SALLY STANTON) Progress/Results/Core Measures Suspected Sepsis SIRS Temperature: Pulse: 84 Respiratory Rate: 16 Laboratory Tests 07/26/23 14:14: White Blood Count 10.6 Blood Pressure 134 /86 Mean: 102 Laboratory Tests 07/26/23 14:14: Creatinine 0.74, Platelet Count 268, Total Bilirubin 0.5 (SALLY STANTON) Results/Orders Lab Results Laboratory Tests Test 07/26/23 14:14 Range/Units White Blood Count 10.6 4.3-11.0 10^3/uL Red Blood Count 5.15 H 3.80-5.11 10^6/uL Hemoglobin 14.8 11.5-16.0 g/dL Hematocrit 43 35-52 % Mean Corpuscular Volume 84 80-99 fL Mean Corpuscular Hemoglobin 29 25-34 pg Mean Corpuscular Hemoglobin Concent 34 32-36 g/dL Red Cell Distribution Width 12.9 10.0-14.5 % Platelet Count 268 130-400 10^3/uL Mean Platelet Volume 10.2 9.0-12.2 fL Immature Granulocyte % (Auto) 0 % Neutrophils (%) (Auto) 55 42-75 % Lymphocytes (%) (Auto) 22 12-44 % Monocytes (%) (Auto) 7 0-12 % Eosinophils (%) (Auto) 16 H 0-10 % Basophils (%) (Auto) 0 0-10 % Neutrophils # (Auto) 5.9 1.8-7.8 10^3/uL Lymphocytes # (Auto) 2.3 1.0-4.0 10^3/uL Monocytes # (Auto) 0.7 0.0-1.0 10^3/uL Eosinophils # (Auto) 1.7 H 0.0-0.3 10^3/uL Basophils # (Auto) 0.0 0.0-0.1 10^3/uL Immature Granulocyte # (Auto) 0.0 0.0-0.1 10^3/uL Neutrophils % (Manual) 53 % Lymphocytes % (Manual) 19 % Monocytes % (Manual) 10 % Eosinophils % (Manual) 18 % Basophils % (Manual) 0 % Band Neutrophils 0 % Blood Morphology Comment NORMAL Sodium Level 137 135-145 MMOL/L Potassium Level 3.3 L 3.6-5.0 MMOL/L Chloride Level 104 98-107 MMOL/L Carbon Dioxide Level 22 21-32 MMOL/L Anion Gap 11 5-14 MMOL/L Blood Urea Nitrogen 10 7-18 MG/DL Creatinine 0.74 0.60-1.30 MG/DL Estimat Glomerular Filtration Rate 108 BUN/Creatinine Ratio 14 Glucose Level 124 H 70-105 MG/DL Calcium Level 8.9 8.5-10.1 MG/DL Corrected Calcium 8.7 8.5-10.1 MG/DL Total Bilirubin 0.5 0.1-1.0 MG/DL Aspartate Amino Transf (AST/SGOT) 21 5-34 U/L Alanine Aminotransferase (ALT/SGPT) 20 0-55 U/L Alkaline Phosphatase 79 40-136 U/L Troponin I < 0.028 <0.028 NG/ML C-Reactive Protein High Sensitivity 2.40 H 0.00-0.50 MG/DL B-Type Natriuretic Peptide < 10.0 <100.0 PG/ML Total Protein 8.2 6.4-8.2 GM/DL Albumin 4.2 3.2-4.5 GM/DL Lipase 22 8-78 U/L Influenza Type A (RT-PCR) Not Detected Not Detecte Influenza Type B (RT-PCR) Not Detected Not Detecte SARS-CoV-2 RNA (RT-PCR) Not Detected Not Detecte (CAREN VARGAS MD) Vital Signs/I&O 07/26/23 07/26/23 13:24 15:28 Temp 36.6 Pulse 84 85 Resp 16 18 B/P (MAP) 134/86 (102) 136/84 Pulse Ox 95 96 O2 Delivery Room Air (CAREN VARGAS MD) Vital Signs/I&O Capillary Refill : (SALLY STANTON) Blood Pressure Mean: 102 ECG Comment Sinus rhythm, possible right ventricular conduction delay, 82 bpm, QRS duration 79 MS, QTc 410 MS (SALLY STANTON) Departure Communication (PCP) Patient with cough since Tuesday. Increasing cough with some shortness of breath and wheezing. Symptoms became worse last night. Right-sided chest pain with the cough. CBC, CMP, lipase, troponin, EKG and chest x-ray was ordered. Did add COVID influenza. Patient vital signs were stable. No known cardiac history. CBC, CMP was grossly unremarkable. Normal troponin and BNP. EKG without evidence of ST elevation or depression. Chest x-ray was negative for pneumonia. Reassuring lab work. COVID influenza was negative. She did have some subtle wheezing throughout. Refused breathing treatment. She has not been using her inhaler at home. She was requesting a refill which was provided. Will discharge with short burst steroids. History of right basilar pneumonia after reviewing previous visits around this time. Concern for early pneumonia with some subtle wheezing in the right lower lobe. Will discharge with doxycycline. denies history of smoking or COPD. She is requesting a work note. Suspect more bronchitis. Will discharge with short burst steroids. Continue with albuterol inhaler for shortness of breath and wheezing. Follow-up with PCP in 2 to 3 days for reevaluation. If any worsening symptoms return back to ED (SALLY STANTON) Impression Primary Impression: Upper respiratory infection Disposition: HOME, SELF-CARE Condition: Stable Departure-Patient Inst. Decision time for Depature: 15:23 (SALLY STANTON) Referrals: [facility],LOCAL PHYSICIAN (PCP) Primary Care Physician Patient Instructions: Acute Bronchitis, Adult (DC) Scripts Albuterol Sulfate (VENTOLIN HFA) 1 Puff Puff 2 PUFF INH Q4H, #1 EA 1 PUFF = 90 MCG Prov: SALLY STANTON 07/26/23 Prednisone (Prednisone) 50 Mg Tab 50 MG PO DAILY for 5 Days, #5 TAB Prov: SALLY STANTON 07/26/23 Doxycycline Monohydrate (Doxycycline Monohydrate) 100 Mg Tablet 100 MG PO BID for 7 Days, #14 TAB Prov: SALLY STANTON 07/26/23 Work/School Note: Work Release Form Date Seen in the Emergency Department: Jul 26, 2023 Return to Work: Jul 29, 2023 ATTENDING PHYSICIAN NOTE: I was physically present as attending physician in the emergency department during the care of this patient, but I was not directly involved in the decision making or delivery of care for this patient. (CAREN VARGAS MD) SALLY STANTON Jul 26, 2023 14:01 CAREN VARGAS MD Jul 26, 2023 23:18
[2023-07-26 14:20] LABS: BASOPHILS % (AUTO) 0 % (0-10); EOSINOPHILS # (AUTO) 1.7 10^3/uL (0.0-0.3); EOSINOPHILS % (AUTO) 16 % (0-10); HEMATOCRIT 43 % (35-52); HEMOGLOBIN 14.8 g/dL (11.5-16.0); LYMPHOCYTES # (AUTO) 2.3 10^3/uL (1.0-4.0); LYMPHOCYTES % (AUTO) 22 % (12-44); MEAN CORPUSCULAR HEMOGLOBIN 29 pg (25-34); MEAN CORPUSCULAR HGB CONC 34 g/dL (32-36); MEAN CORPUSCULAR VOLUME 84 fL (80-99); MEAN PLATELET VOLUME 10.2 fL (9.0-12.2); MONOCYTES # (AUTO) 0.7 10^3/uL (0.0-1.0); MONOCYTES % (AUTO) 7 % (0-12); NEUTROPHILS # (AUTO) 5.9 10^3/uL (1.8-7.8); NEUTROPHILS % (AUTO) 55 % (42-75); PLATELET COUNT 268 10^3/uL (130-400); WHITE BLOOD COUNT 10.6 10^3/uL (4.3-11.0)
--- NOTE | 2023-07-26 14:34 | Diagnostic Imaging Report ---
HISTORY: Cough. TECHNIQUE: Frontal view of the chest. COMPARISON: 09/22/2022. FINDINGS: Lung volumes are normal. No consolidation is seen. There is mild central vascular congestion. There is no pleural effusion or pneumothorax. The cardiac silhouette is mildly large but stable in size. IMPRESSION: Stable cardiomegaly with mild central vascular congestion. Dictated by: Dictated on workstation # [id number]
[2023-07-26 14:43] LABS: BAND NEUTROPHILS 0 %; BASOPHILS % (MANUAL) 0 %; EOSINOPHILS % (MANUAL) 18 %; LYMPHOCYTES % (MANUAL) 19 %; MONOCYTES % (MANUAL) 10 %; NEUTROPHILS % (MANUAL) 53 %; RBC MORPH NORMAL
[2023-07-26 14:46] LABS: ALBUMIN 4.2 GM/DL (3.2-4.5); CHLORIDE 104 MMOL/L (98-107); POTASSIUM 3.3 MMOL/L (3.6-5.0); SODIUM 137 MMOL/L (135-145)
[2023-07-26 14:47] LABS: CALCIUM 8.9 MG/DL (8.5-10.1)
[2023-07-26 14:48] LABS: GLUCOSE 124 MG/DL (70-105)
[2023-07-26 14:49] LABS: TOTAL PROTEIN 8.2 GM/DL (6.4-8.2)
[2023-07-26 14:50] LABS: BILIRUBIN,TOTAL 0.5 MG/DL (0.1-1.0); CARBON DIOXIDE 22 MMOL/L (21-32)
[2023-07-26 14:52] LABS: ALKALINE PHOSPHATASE 79 U/L (40-136); CREATININE SERUM 0.74 MG/DL (0.60-1.30); GFR ESTIMATED 108
[2023-07-26 14:53] LABS: BUN/CREATININE RATIO 14
[2023-07-26 14:55] LABS: ALANINE AMINOTRANSFERASE 20 U/L (0-55); LIPASE 22 U/L (8-78)
[2023-07-26] MEDS ORDERED: PRD50T PO (15:25)
[2023-07-26] MEDS ORDERED: RT-ALBUINH INH (15:25)
[2023-07-26] MEDS ORDERED: DOXY100T31 PO (15:25)
[2023-07-26 15:28] VITALS: BP 136/84
== END 2023-07-26 15:28 | disposition home or self-care (01) ==
LOC: EDUNIT# 13:12 → ER 13:15
DX: J06.9 Acute upper respiratory infection, unspecified (principal); Z87.09 Personal history of other diseases of the respiratory system; Z20.822 Contact with and (suspected) exposure to COVID-19
CPT/HCPCS: 36415; 71045; 80053; 83690; 83880; 84484; 85007; 85025; 85027; 86141; 87636; 93005